=== PATIENT | male | born 1945 | race Asian ===

== ENCOUNTER 2018-12-14 04:10 | Emergency (ER) | payer MEDICARE, MEDICAID ==
[~2018-12-14] VITALS: Ht 157.5 cm; Wt 72.0 kg
[2018-12-14] MEDS ORDERED: methylPREDNISolone sod succ 125mg/2ml vial IV ONE (04:25)
[2018-12-14] MEDS ORDERED: ipratropium/albuterol 3ml nebule NEB ONE (04:25)
[2018-12-14 04:58] LABS: BASOPHILS % (AUTO) 0.3 % (0-1); EOSINOPHILS # (AUTO) 0.4 X10'3 (0-0.9); HEMOGLOBIN 13.4 g/dl (14.0-17.9); LYMPHOCYTES # (AUTO) 0.5 X10'3 (1.1-4.8); MONOCYTES # (AUTO) 0.6 X10'3 (0-0.9); NEUTROPHILS # (AUTO) 6.2 X10'3 (1.8-7.7)
[2018-12-14 04:59] LABS: EOSINOPHILS % (AUTO) 4.9 % (0-6); HEMATOCRIT 38.2 % (42.0-52.0); LYMPHOCYTES % (AUTO) 6.8 % (21-51); MEAN CORPUSCULAR HEMOGLOBIN 33.1 PG (27.0-31.0); MEAN CORPUSCULAR HGB CONC 35.1 g/dL (33.0-36.5); MEAN CORPUSCULAR VOLUME 94.2 FL (78-98); MONOCYTES % (AUTO) 7.3 % (2-12); NEUTROPHILS % (AUTO) 80.7 % (42-75); PLATELET COUNT 186 X10'3 (140-440); RED BLOOD COUNT 4.05 X10'6 (4.70-6.10); RED CELL DISTRIBUTION WIDTH 12.6 % (11.5-14.5); WHITE BLOOD COUNT 7.7 X10'3 (4.5-11.0)
[2018-12-14 05:12] LABS: ALANINE AMINOTRANSFERASE 30 U/L (12-78); ALBUMIN 3.7 G/DL (3.4-5.0); ALKALINE PHOSPHATASE 78 IU/L (46-116); ANION GAP 11 (8-16); ASPARTATE AMINO TRANSFERASE 67 U/L (10-37); BILIRUBIN,TOTAL 1.2 MG/DL (0.1-1.0); BLOOD UREA NITROGEN 15 MG/DL (7-18); BUN/CREATININE RATIO 10.5 (5.4-32.0); CALCIUM 9.2 MG/DL (8.5-10.1); CHLORIDE 103 MMOL/L (99-107); CREATININE 1.43 MG/DL (0.60-1.10); GLUCOSE 147 MG/DL (70-104); POTASSIUM 3.9 MMOL/L (3.5-5.1); SODIUM 137 MMOL/L (135-145); TOTAL CARBON DIOXIDE 23.5 MMOL/L (24-32); TOTAL PROTEIN 7.3 G/DL (6.4-8.2); eGFR 48 ML/MIN
[2018-12-14 05:15] LABS: PARTIAL THROMBOPLASTIN TIME 20 SECONDS (22-32); PROTHROMBIN TIME 10.5 SECONDS (9.0-12.0)
[2018-12-14] MEDS ORDERED: benzonatate 100mg capsule PO ONE (05:15)
[2018-12-14 05:20] LABS: TROPONIN I < 0.04 NG/ML (0.0-0.05)
[2018-12-14 05:24] VITALS: BP 134/82
[2018-12-14] MEDS ORDERED: DOXY100T2 PO (05:25)
[2018-12-14] MEDS ORDERED: BENZ-16 PO (05:25)
[2018-12-14] MEDS ORDERED: ALBU8HFA PO (05:25)
[2018-12-14] MEDS ORDERED: PRED20TA PO (05:25)
== END 2018-12-14 06:04 | disposition home or self-care (01) ==
LOC: EDBD 04:11 → ER 04:11
DX: J20.9 Acute bronchitis, unspecified (principal); R06.02 Shortness of breath; R11.2 Nausea with vomiting, unspecified; J45.909 Unspecified asthma, uncomplicated; Z79.899 Other long term (current) drug therapy
CPT/HCPCS: 36415; 71045; 80053; 83880; 84484; 85025; 85610; 85730; 93005; 94640; 94760; 96374; 99284; J2930